=== PATIENT | male | born 1980 | race Caucasian/White ===

== ENCOUNTER 2023-08-22 13:16 | Emergency (ER) | payer SELFPAY ==
[~2023-08-22] VITALS: Ht 172.7 cm; Wt 65.8 kg
[2023-08-25 00:35] LABS: QUANTIFERON MITOGEN MINUS NIL 9.96 IU/mL; QUANTIFERON NIL 0.04 IU/mL
== END 2023-08-22 17:45 ==
LOC: ER 13:16
PROVIDERS: Emergency Medicine
DX: R61 Generalized hyperhidrosis (principal)
CPT/HCPCS: 36415; 71046; 86480; 99283-25